=== PATIENT | female | born 1955 | race Caucasian/White ===

== ENCOUNTER → 2020-03-23 | Outpatient (CLI) | payer BC ==
--- NOTE | 2020-03-23 15:37 | RAD ---
EXAM: BILATERAL DIGITAL 3D SCREENING MAMMOGRAPHY. HISTORY: Routine mammographic screening. TECHNIQUE: Bilateral digital 3D and tomographic images were obtained in CC and MLO projections. Computer-aided detection was applied. COMPARISON: 01/18/2019. COMPOSITION: B. There are scattered areas of fibroglandular density. FINDINGS: There are no suspicious masses, microcalcifications or architectural distortion. The parenchymal pattern is stable. An asymmetric parenchymal island medially on the right is stable. Scattered calcifications are benign. BI-RADS CATEGORY 2: Benign. RECOMMENDATION: 1. Routine screening mammography in one year. If mammography demonstrates dense breast tissue (heterogenously dense or extremely dense, category C or D), which could hide abnormalities, and if other risk factors for breast cancer have been identified, supplemental screening tests that may be suggested by the ordering physician may be of benefit. Dense breast tissue, in and of itself, is a relatively common condition. Therefore, this information is not provided to cause undue concern, but rather to raise awareness and to promote discussion with the referring physician regarding the presence of other risk factors, in addition to dense breast tissue. The results of this mammography examination is provided to the patient and referring physician. The patient should contact their referring physician if any questions or concerns exist regarding this report. PQRS compliance statement - Patient information was entered into a reminder system with a target due date for the next mammogram. "Our facility is accredited by the [employer] Mamm[employer]." Electronically signed by: Abundio Dunn MD (03/23/2020 3:34 PM) [id number]
== END ==
LOC: MAMMO 08:11
PROVIDERS: ATTEND Family Medicine
DX: Z12.31 Encounter for screening mammogram for malignant neoplasm of breast (principal)
CPT/HCPCS: 77063; 77067

== ENCOUNTER → 2021-09-24 | Outpatient (CLI) | payer BC, MEDICARE ==
--- NOTE | 2021-09-24 16:20 | RAD ---
Bilateral digital screening 2-D and 3-D (digital breast tomosynthesis) mammogram: Reason for examination: Routine screening. Comparison: Mammograms from 03/23/2020 and 01/18/2019. Interpretation was made with the benefit of CAD. FINDINGS: Breast density: Category B. There are scattered areas of fibroglandular density. No suspicious breast mass, malignant appearing calcifications, or architectural distortion is seen. IMPRESSION: No evidence of malignancy. Assessment: BI-RADS 1. Negative. Recommendation: Routine screening mammograms. The patient will receive a letter with the results in the mail. Patient information will be entered i nto the mammography reminder system with a target recall date for the next mammogram. A reminder gely er will be generated. Electronically signed by: Ronda Anthony MD (09/24/2021 4:17 PM) [id number]
== END ==
LOC: MAMMO 09:40
PROVIDERS: ATTEND Family Medicine
DX: Z12.31 Encounter for screening mammogram for malignant neoplasm of breast (principal)
CPT/HCPCS: 77063; 77067